=== PATIENT | male | born 1990 | race Caucasian/White ===

== ENCOUNTER 2022-04-08 15:40 | Emergency (ER) | payer BC, SELFPAY ==
[2022-04-08 16:06] VITALS: BP 138/81; PULSE 90; RESP 18; TEMP 37.6; O2SAT 100
--- NOTE | 2022-04-08 16:16 | ED.URI ---
HPI - URI/Sore Throat General Chief Complaint: Upper Respiratory Infection Stated Complaint: chills,bodyache,cough Time Seen by Provider: 04/08/22 16:16 Source: patient, RN notes reviewed and old records reviewed Mode of arrival: ambulatory Limitations: no limitations History of Present Illness HPI Narrative: 32-year-old male presents to [facility] complaints of chills, body aches cough since yesterday. patient states symptoms less than 24 hours of. Has not had a flu shot. Related Data Home Medications Medication Instructions Recorded Confirmed fluoxetine 40 mg capsule 120 mg PO DAILY 04/08/22 04/08/22 Allergies Allergy/AdvReac Type Severity Reaction Status Date / Time Sulfa (Sulfonamide Allergy Rash Verified 04/08/22 16:11 Antibiotics) Review of Systems Review of Systems: All systems reviewed & are unremarkable except as noted in HPI and below Constitutional: Constitutional: Reports as per HPI, Reports chills, Reports fatigue and Reports fever(s) Eyes: Eyes: Reports no additional eye complaints ENT: Reports system reviewed and no additional complaints, except as documented Cardiovascular: Cardiovascular: Reports no additional cardiovascular complaints, Denies chest pain and Denies dyspnea Respiratory: Respiratory: Reports as per HPI, Denies chest congestion, Reports cough and Denies dyspnea Gastrointestinal: Gastrointestinal: Reports no additional gastrointestinal complaints, Denies abdominal pain, Denies nausea and Denies vomiting Musculoskeletal: Musculoskeletal: Reports no additional musculoskeletal complaints Integumentary/Breasts: Skin/Breast: Reports system reviewed and no additional complaints, except as docu Neurologic: Reports system reviewed and no additional complaints, except as documented Psychiatric: Psychiatric: Reports no additional psychiatric complaints Allergic/Immunologic: Allergic/Immunologic: Reports no additional allergic/immunologic complaints PMFSH Comments At the time of my signature, I reviewed and agree with the nursing past medical, surgical, social, and family history. There is no relevant family history pertinent to the patient complaint. Exam Const: General: cooperative, comfortable, no acute distress, well developed, alert, ill appearing acutely (mild), average body habitus and well nourished Nutritional Appearance: average body habitus and well nourished Orientation/consciousness: patient oriented x3 Limitations: no limitations HENMT: Head: normal to inspection Ears: hearing grossly normal bilaterally and external ears normal Face/Nose/Sinus: Normal external nose present, Normal nares present, Normal nasal mucous membranes and turbinates present and normal facial exam Face and sinus: normal facial exam Mouth: Yes Normal oral and palatal mucosa present, Yes lip normal and Yes moist mucous membranes Throat: posterior oropharynx normal and uvula midline Eyes: General: appearance normal, both eyes and all related structures Alignment and Position: alignment normal Periorbital: periorbital findings normal Conjunctivae: conjunctivae normal Pupils: Equal, round and reactive pupils present EOM: EOMs intact bilaterally Neck: Neck: normal visual inspection, full ROM, no lymphadenopathy and no meningeal signs Chest: Chest palpation & inspection: normal inspection of the chest Resp: Effort & Inspection: normal respiratory effort and able to speak in complete sentences Auscultation: clear to auscultation bilaterally, no crackles, no rales, no rhonchi and no wheezes Cardio: Rate: regular rate Rhythm: regular rhythm Back/Spine/Pelvis: Cervical Spine: cervical ROM normal Thoracic/Lumbar Spine: No thoracic spinal tenderness Skin: General skin exam: normal color and no rashes or lesions noted Lesions: no lesions Rashes: no rashes Wounds: no wounds Neuro: General: patient oriented x3, gait normal, tone normal, moves all extremities and no meningeal signs [employer]
== END 2022-04-08 16:37 | disposition home or self-care (01) ==
PROVIDERS: Emergency Provider Nurse Practitioner
DX: R05.9 Cough, unspecified (principal); R68.83 Chills (without fever); R52 Pain, unspecified
CPT/HCPCS: 99211; G0463

== ENCOUNTER 2022-12-02 00:51 | Day surgery (SDC) | payer BC, SELFPAY ==
[2022-11-24 15:50] VITALS: BMI 26.9
[2022-12-02 09:11] VITALS: BP 127/76; PULSE 85; RESP 16; TEMP 36.4; O2SAT 97; BMI 25.7
[2022-12-02] MEDS: LACTATED RINGERS 1,000 ML 150 ML IV CONT (09:17)
--- NOTE | 2022-12-02 09:48 | PM.HPGS ---
History of Present Illness History of Present Illness Consent: Risks, benefits, and alternatives have been discussed and questions answered. Patient agrees to proceed with procedure. Chief complaint: history of rectal bleeding Narrative: Moy Hatfield is a 32 year old male presents for colonoscopy. Patient gives a history of bright red blood per rectum past in May of 2022. This no longer is occurring. He denies any abdominal pain. Patient referred for colonoscopy to assess source of rectal bleeding. Family history is noncontributory. Review of Systems Review of Systems: Review of systems noncontributory. [facility] Past Medical History Medical History (Updated 09/23/22 @ 08:50 by Jolanta Meek APRN) Anxiety Hemorrhoids Rectal bleeding Tenesmus (rectal) Surgical History Surgical History H/O knee surgery H/O right wrist surgery History of hernia surgery Family History Family History Mother No problems noted. Father No problems noted. Social History Social History Smoking status: Never smoker Alcohol intake: current Drinks per week: 4 Alcohol use details: BEERS Substance use: never Substance use type: does not use Living arrangements: with family Occupation/Education: occupation Gender identity (if verbalized by the patient): Male Spiritual care concerns: No Meds Home Medications and Allergies Home Medications Medication Instructions Recorded Confirmed Type fluoxetine 40 mg capsule 120 mg PO DAILY 04/08/22 12/02/22 History Allergies Allergy/AdvReac Type Severity Reaction Status Date / Time Sulfa (Sulfonamide Allergy Intermediate Rash Verified 12/02/22 09:09 Antibiotics) Vital Signs Vital Signs - 24 hr 12/02/22 09:11 Temperature 97.5 F L Pulse Rate 85 Respiratory Rate 16 Blood Pressure 127/76 Pulse Oximetry 97 Oxygen Delivery Room Air Exam Narrative: Physical exam reveals patient to be alert. Vital signs stable. HEENT exam is unremarkable. Patient is anicteric. Lungs are clear to auscultation and percussion. Heart is without murmur or extra sounds. Abdomen bowel sounds are present soft nontender with no organomegaly. Digital external rectal exam is normal. Assessment and Plan Assessment and plan (1) Rectal bleeding: Code(s): K62.5 - Hemorrhage of anus and rectum Status: Acute Assessment and Plan: Patient referred because rectal bleeding noticed in May 2022. Colonoscopy will be performed. High-fiber diet suggested for possible hemorrhoidal bleeding. Further recommendations may be given after endoscopy.
--- NOTE | 2022-12-02 09:53 | P.PNAN_ITS ---
Anes - Initial Pre Proc Eval Procedure: Operation Date: 12/02/22 10:30 Proposed Procedures p Colonoscopy - Walker Cisse MD Date/Time: 12/02/22 09:53 Surgeon: Walker Cisse MD Pre Op Diagnosis: history of rectal bleeding Patient Data Age: 32 Gender: M Height: 1.91 m Weight: 93.5 kg Last Vital Signs Temp 97.5 F L 12/02/22 09:11 Pulse 85 12/02/22 09:11 Resp 16 12/02/22 09:11 BP 127/76 12/02/22 09:11 Pulse Ox 97 12/02/22 09:11 O2 Del Method Room Air 12/02/22 09:11 Allergies Allergy/AdvReac Type Severity Reaction Status Date / Time Sulfa (Sulfonamide Allergy Intermediate Rash Verified 12/02/22 09:09 Antibiotics) Home Medications Medication Instructions Recorded Confirmed Type fluoxetine 40 mg capsule 120 mg PO DAILY 04/08/22 12/02/22 History Patient hx anesthesia problems: none Family hx anesthesia problems: none Results Review: All pre-operative results and documents have been reviewed as part of the pre- operative evaluation. [facility] Past Medical History Medical History (Updated 09/23/22 @ 08:50 by Jolanta Meek APRN) Anxiety Hemorrhoids Rectal bleeding Tenesmus (rectal) Surgical History Surgical History H/O knee surgery H/O right wrist surgery History of hernia surgery Family History Family History Mother No problems noted. Father No problems noted. Social History Social History Smoking status: Never smoker Alcohol intake: current Drinks per week: 4 Alcohol use details: BEERS Substance use: never Substance use type: does not use Living arrangements: with family Occupation/Education: occupation Gender identity (if verbalized by the patient): Male Spiritual care concerns: No Anes - Eval Final PreProcedure Day of Procedure 12/02/22 09:53 Patient weight: normal Heart: regular rate and rhythm Lungs: clear to auscultation Airway: Mallampati scale class II Neurological: alert and oriented Last oral intake: >/= 8 hours ASA classification: II Emergent: no Anesthetic plan: proceed Anesthesia type and monitoring: general GIVS and standard monitoring Results Review: All pre-operative results and documents have been reviewed as part of the pre-o perative evaluation. Informed Consent: The patient's anesthetic plan and its attendant risks and benefits were discussed with the patient/family/POA. Questions were solicited and answers provided to the satisfaction of the patient/family/POA.
[2022-12-02] MEDS: SIMETHICONE ORAL SUSPENSION 20 MG/0.3 ML 30 ML BOTTLE 0.6 ML IRRIGATION (10:12)
[2022-12-02 10:24] VITALS: BP 113/78; PULSE 87; RESP 16; O2SAT 97
[2022-12-02 10:34] VITALS: BP 120/77; BP 127/82; PULSE 76; PULSE 82; RESP 16; O2SAT 97
== END 2022-12-02 10:52 | disposition home or self-care (01) ==
PROVIDERS: PCP Family Medicine; Visit Provider Internal Medicine Gastroenterology
PROC: 0DJD8ZZ Inspection of Lower Intestinal Tract, Via Natural or Artificial Opening Endoscopic (ICD-10-PCS; CPT 45378; principal; 2022-12-02 10:30)
DX: K64.8 Other hemorrhoids (principal); F41.9 Anxiety disorder, unspecified
CPT/HCPCS: 45378; J2704; J7120